=== PATIENT | male | born 1975 | race Caucasian/White ===

== ENCOUNTER 2023-09-08 14:05 | Emergency (ER) | payer OTHER, SELFPAY ==
[2023-09-08 14:08] VITALS: BP 206/135
[2023-09-08 15:42] VITALS: BMI 41.1
--- NOTE | 2023-09-08 16:13 | ED.GENMED ---
History of Present Illness
<Serjio Guy Jr., PA-C - Last Filed: 09/08/23 16:25>
General
Chief Complaint: Skin Problem
Source: patient
Exam Limitations: none
Time Seen by Provider: 09/08/23 15:45
Nursing documentation reviewed up to this point in time: agreed with
Travel History
Have you had any contact with someone who has COVID-19?: No
Do you have any symptoms of coronavirus? Fever > 100 degrees, chills, cough, shortness of breath, sore throat, loss of taste or smell, muscle aches, or headache?: No
History of Present Illness
History of Present Illness:
48-year-old male with past medical history of hypertension presenting to the emergency department today with concerns of left groin discomfort of the past 5 days. Also has noted some redness to the area. Denies any systemic symptoms. Denies any
chest pain shortness of breath abdominal pain nausea vomiting.
Past History
<Serjio Guy Jr., PA-C - Last Filed: 09/08/23 16:25>
Past History
ED Past Medical History: HTN (Borderline)
ED Past Surgical History: Orthopedic
Social History
Tobacco: Non-smoker
Personal:
Review of Systems
<Serjio Guy Jr., PA-C - Last Filed: 09/08/23 16:25>
Review of Systems
Allergies reviewed?: Yes
All Other Systems: ROS reviewed and negative except as documented in HPI and ROS
Phy Exam
<Serjio Guy Jr., PA-C - Last Filed: 09/08/23 16:25>
Physical Exam
Physical Exam:
GENERAL: Alert , in no apparent distress
EYE: pupils equal and reactive
NECK: Supple, no significant adenopathy.
ENT: o/p clr, mmm.
CARDIAC: Regular rate and rhythm .
LUNGS: Clear breath sounds bilaterally, no acute respiratory distress, no wheezes/rales/rhonchi
ABDOMEN: Soft, without focal tenderness, no r/g, no cvat
NEUROLOGICAL: Alert and oriented, no focal neuro deficits
SKIN: Grouped vesicles on erythematous base to the left groin also a small area to the left upper buttock warm and dry, skin intact.
MUSCULOSKELETAL: No edema, well perfused.
PSYCH: Normal and appropriate interaction.
Course
<Serjio Guy Jr., PA-C - Last Filed: 09/08/23 16:25>
Orders/Labs/Results
Orders:
Orders
09/08/23 16:07
Valacyclovir HCl [Valtrex] 1,000 mg PO ONCE ONE
Vital Signs
Initial and Last Documented VS:
Initial Vital Signs
Temp Pulse Resp BP Pulse Ox
98.6 F 99 18 206/135 100
09/08/23 14:08 09/08/23 14:08 09/08/23 14:08 09/08/23 14:08 09/08/23 14:08
Last Documented Vital Signs
Temp Pulse Resp BP Pulse Ox
98.6 F 77 18 200/105 99
09/08/23 14:08 09/08/23 17:00 09/08/23 14:08 09/08/23 17:00 09/08/23 17:00
<Shravan Campbell DO - Last Filed: 09/09/23 06:07>
Orders/Labs/Results
Orders:
Orders
09/08/23 16:07
Valacyclovir HCl [Valtrex] 1,000 mg PO ONCE ONE
Vital Signs
Initial and Last Documented VS:
Initial Vital Signs
Temp Pulse Resp BP Pulse Ox
98.6 F 99 18 206/135 100
09/08/23 14:08 09/08/23 14:08 09/08/23 14:08 09/08/23 14:08 09/08/23 14:08
Last Documented Vital Signs
Temp Pulse Resp BP Pulse Ox
98.6 F 77 18 200/105 99
09/08/23 14:08 09/08/23 17:00 09/08/23 14:08 09/08/23 17:00 09/08/23 17:00
<Serjio Guy Jr., PA-C - Last Filed: 09/08/23 16:25>
MDM/Problems Addressed
MDM/Problems Addressed:
48-year-old male presenting to the emergency swelling discomfort to the left groin. Patient had a rash that is consistent with shingles. He has no additional symptoms consistent with any intra-abdominal pathology or urinary pathology. Plan for
treatment of shingles and stable for discharge otherwise. Blood pressure was very elevated was previously on blood pressure medication but stopped this on his own accord at home. Was written for a new prescription for amlodipine and
hydrochlorothiazide. Case also seen by attending physician Dr. Campbell
<Serjio Guy Jr., PA-C - Last Filed: 09/08/23 16:25>
*Critical Care Note
Total Time (30-74mins, 75-104mins- exclusive of procedures): Not Applicable
ED Attending Note
<Serjio Guy Jr., PA-C - Last Filed: 09/08/23 16:25>
-
Portions of this chart may have been created with voice recognition software.� Occasional wrong word or��sound alike� substitutions may have occurred due to the inherent limitations of voice recognition software.
<Shravan Campbell DO - Last Filed: 09/09/23 06:07>
ED Attending Note
Patient seen and examined by attending physician: Yes
I performed the substantive portion of visit, reviewed & personally made and approve the management plan that is documented in note by myself or DONG.: Yes
ED Attending Note:
Patient is a 48-year-old male who presents to the emergency department concern for possible DVT of his left lower extremity. Patient noticed a rash along the left inguinal region that started 5 days ago. Patient was flying to [place] and since
then has become worse. Patient spoke to the school nurse as well as to a nurse practitioner and because of his flight to [place] and back they were concerned about a possible DVT. Patient has no history. Patient has a history of hypertension but
has been off medications secondary to adverse reactions to medications. Patient denies fever chills, chest pain, shortness of breath. Patient denies any numbness or paresthesias. Patient denies any GI or symptoms. Physical exam lab patient is
overweight but does not appear to be in any distress. Heart is regular lungs are clear. Patient has a vesicular erythematous rash in the left inguinal region going around to his buttocks on the left only. Does not go beyond the midline. Patient
has no calf tenderness. Patient has no edema, cyanosis. Patient has good distal pulses. Will start patient on a antiviral. Will also start the patient on diuretic and calcium channel keanu and have the patient follow-up with his family doctor.
This appears to be herpes zoster. Patient will be discharged.
Discharge Plan
Departure
Patient Disposition: Home (Routine Discharge)
Date of Disposition: 09/08/23
Time of Disposition: 16:20
Patient with high blood pressure during this ER visit?: Yes
Condition: Good
Covid-19: Not Applicable
Discharge Problem:
Shingles, HTN (hypertension)
Instructions: Shingles (DC), BLOOD PRESSURE
Prescriptions:
New
valacyclovir 1 gram tablet
1,000 mg PO TID 7 Days Qty: 21 0RF
amlodipine 5 mg tablet
5 mg PO DAILY 14 Days Qty: 14 0RF
hydrochlorothiazide 12.5 mg tablet
12.5 mg PO DAILY 14 Days Qty: 14 0RF
No Action
albuterol sulfate 2.5 MG/3 ML solution for nebulization
2.5 mg inhalation Q4 Qty: 30 0RF
promethazine-codeine 473 ML syrup
5 - 10 ml PO Q6 Qty: 120 0RF
prednisone 50 MG tablet
50 mg PO Daily Qty: 4 0RF
levofloxacin [Levaquin] 750 MG tablet
750 mg PO Daily Qty: 5 0RF
olmesartan-hydrochlorothiazide [Benicar HCT] 1 EACH tablet
1 ea PO DAILY Qty: 30 0RF
Activity Restrictions/Additional Instructions:
You came to the emergency department today with concerns of a rash and discomfort to the left groin area. This appears to be consistent with shingles. Please take valacyclovir 3 times daily for the next week and also take the blood pressure
medication. Please follow close with your primary care doctor within 1 to 2 weeks to be reassessed to ensure your blood pressure is well-controlled and to reassess the shingles rash. Return to the emergency department for any worsening, new or
concerning symptoms.
Interventions
Interventions:
*Risk Screen - Suicide Last Done: 09/08/23 14:08
*General Assessment Last Done: 09/08/23 14:08
*Neglect/Abuse Screening Last Done: 09/08/23 14:08
ED- Fall Risk Assessment Last Done: 09/08/23 16:04
*ED COVID-19 Vaccine History Last Done: 09/08/23 17:00
*Nursing Disposition Last Done: 09/08/23 17:00
ED-Skin Assessment Last Done: 09/08/23 16:04
Discharge Date and Time
Discharge Date/Time: 09/08/23 17:13
[2023-09-08] MEDS: VALTREX 1000 MG PO (16:47)
[2023-09-08 17:00] VITALS: BP 200/105
== END 2023-09-08 17:13 | disposition home or self-care (01) ==
LOC: EMR 14:05
PROVIDERS: EMERGENCY PHYSICIAN Emergency Medicine
DX: B02.9 Zoster without complications (principal); R10.30 Lower abdominal pain, unspecified; I10 Essential (primary) hypertension; E66.3 Overweight; G47.30 Sleep apnea, unspecified; Z86.718 Personal history of other venous thrombosis and embolism; Z87.01 Personal history of pneumonia (recurrent)
CPT/HCPCS: 99283

== ENCOUNTER → 2024-05-10 16:37 | Outpatient (REF) | payer OTHER, SELFPAY | LOC: RAD 16:37 | PROVIDERS: ATTENDING PHYSICIAN Family Medicine | DX: R05.3 Chronic cough (principal); Z87.01 Personal history of pneumonia (recurrent) | CPT/HCPCS: 71046 ==

== ENCOUNTER → 2024-05-18 08:40 | Outpatient (REF) | payer OTHER, SELFPAY | LOC: RCS 08:40 | PROVIDERS: ATTENDING PHYSICIAN Internal Medicine; FAMILY PHYSICIAN Family Medicine | DX: I42.0 Dilated cardiomyopathy (principal) | CPT/HCPCS: 93306 ==

== ENCOUNTER → 2024-08-22 08:10 | Outpatient (REF) | payer OTHER, SELFPAY | LOC: RCS 08:10 | PROVIDERS: ATTENDING PHYSICIAN Internal Medicine; FAMILY PHYSICIAN Family Medicine | DX: E66.9 Obesity, unspecified (principal) | CPT/HCPCS: 93306 ==

== ENCOUNTER → 2025-02-10 07:36 | Outpatient (REF) | payer OTHER, SELFPAY | LOC: RCS 07:36 | PROVIDERS: ATTENDING PHYSICIAN Internal Medicine; FAMILY PHYSICIAN Family Medicine | DX: I42.0 Dilated cardiomyopathy (principal) | CPT/HCPCS: 78452; 93017; A9500 ==